=== PATIENT | female | born 1990 | race Caucasian/White ===

== ENCOUNTER 2019-10-10 22:58 | Emergency (ER) | payer SELFPAY ==
[~2019-10-10] VITALS: Ht 175.3 cm; Wt 86.4 kg
[2019-10-10 23:24] LABS: BILIRUBIN,URINE NEGATIVE (NEG); CLARITY,URINE TURBID; COLOR,URINE YELLOW; NITRITE,URINE NEGATIVE (NEG); PH,URINE 8.5 (<5.0-8.0); PROTEIN,URINE NEGATIVE (NEG-TRACE)
[2019-10-10 23:27] LABS: BASO # 0.1 x10^3/uL (0.0-0.2); BASO % 1 % (0-3); EOS # 0.5 x10^3/uL (0.0-0.7); EOS % 5 % (0-3); HEMATOCRIT 38.4 % (36.0-47.0); HEMOGLOBIN 13.2 g/dL (12.0-15.5); LYMPH # 2.5 x10^3/uL (1.0-4.8); LYMPH % 29 % (24-48); MEAN CORPUSCULAR HEMOGLOBIN 32 pg (25-35); MEAN CORPUSCULAR HGB CONC 35 g/dL (31-37); MEAN CORPUSCULAR VOLUME 92 fL (79-100); MONO # 0.8 x10^3/uL (0.0-1.1); MONO % 9 % (0-9); NEUT % 56 % (31-73); PLATELET COUNT 291 x10^3/uL (140-400); RED BLOOD COUNT 4.18 x10^6/uL (3.50-5.40); RED CELL DISTRIBUTION WIDTH 12.3 % (11.5-14.5); WHITE BLOOD COUNT 8.8 x10^3/uL (4.0-11.0)
[2019-10-10 23:29] LABS: AMPHETAMINE/METHAMPHETAMINE NEG (NEG); BARBITURATES NEG (NEG); BENZODIAZEPINES NEG (NEG); CANNABINOIDS NEG (NEG); COCAINE NEG (NEG); METHADONE NEG (NEG); OPIATES NEG (NEG); PHENCYCLIDINE NEG (NEG)
[2019-10-10] MEDS ORDERED: IV NORMAL SALINE 1000ML BAG 1,000 ML IV ONE (23:30)
[2019-10-10] MEDS ORDERED: ONDANSETRON PF 4 MG/2 ML VIAL. IVP ONE (23:30)
[2019-10-10] MEDS ORDERED: FAMOTIDINE 20 MG/2 ML VIAL IVP ONE (23:30)
[2019-10-10] MEDS ORDERED: DICYCLOMINE HCL 10 MG CAPSULE PO ONE (23:30)
[2019-10-10 23:32] LABS: SQUAMOUS EPITHELIAL CELL,UR MOD /LPF
[2019-10-10 23:33] LABS: AMORPHOUS SEDIMENT,UR PRESENT /HPF; BACTERIA,URINE FEW /HPF (0-FEW); RBC,URINE 0 /HPF (0-2); WBC,URINE 0 /HPF (0-4)
[2019-10-10 23:35] LABS: CALCIUM 9.2 mg/dL (8.5-10.1); CREATININE 0.6 mg/dL (0.6-1.0); POTASSIUM 4.2 mmol/L (3.5-5.1)
--- NOTE | 2019-10-10 23:36 | PHYS DOC ---
Past Medical History Past Medical History: Anxiety Adult General Chief Complaint Chief Complaint: ABDOMINAL PAIN HPI HPI Patient is a 29 year old female with a history of anxiety, depression, who presents to the ED today complaining of mild intermittent mid abdominal pain with nausea vomiting, dark stools, and slight diarrhea, symptoms began 1 week ago and has been going on intermittently since then. Patient states she feels constipated though her last stool was today and loose. Denies any fever, or hematemesis Review of Systems Review of Systems Constitutional: Denies fever or chills [] Eyes: Denies change in visual acuity, redness, or eye pain [] HENT: Denies nasal congestion or sore throat [] Respiratory: Denies cough or shortness of breath [] Cardiovascular: No additional information not addressed in HPI [] GI: Reports abdominal pain, nausea vomiting and diarrhea as well as black stools : Denies dysuria or hematuria [] Musculoskeletal: Denies back pain or joint pain [] Integument: Denies rash or skin lesions [] Neurologic: Denies headache, focal weakness or sensory changes [] All other systems were reviewed and found to be within normal limits, except as documented in this note. Current Medications Current Medications Current Medications Medications (Trade) Dose Ordered Sig/Dwayne Start Time Stop Time Status Last Admin Dose Admin Dicyclomine HCl (Bentyl) 20 mg 1X ONCE 10/10/19 23:30 10/10/19 23:31 DC 10/10/19 23:32 20 MG Famotidine (Pepcid Vial) 20 mg 1X ONCE 10/10/19 23:30 10/10/19 23:31 DC 10/10/19 23:32 20 MG Ondansetron HCl (Zofran) 4 mg 1X ONCE 10/10/19 23:30 10/10/19 23:31 DC 10/10/19 23:32 4 MG Sodium Chloride 1,000 ml @ 1,000 mls/hr 1X ONCE 10/10/19 23:30 10/11/19 00:29 10/10/19 23:32 1,000 MLS/HR Allergies Allergies Allergies Coded Allergies Type Severity Reaction Last Updated Verified No Known Drug Allergies 10/10/19 No Physical Exam Physical Exam Constitutional: Well developed, well nourished, no acute distress, non-toxic appearance. [] HENT: Normocephalic, atraumatic, bilateral external ears normal, oropharynx moist, no oral exudates, nose normal. [] Eyes: PERRLA, EOMI, conjunctiva normal, no discharge. [] Neck: Normal range of motion, no tenderness, supple, no stridor. [] Cardiovascular:Heart rate regular rhythm, no murmur [] Lungs & Thorax: Bilateral breath sounds clear to auscultation [] Abdomen: Bowel sounds normal, soft, no tenderness, no masses, no pulsatile masses. [] Skin: Warm, dry, no erythema, no rash. [] Back: No tenderness, no CVA tenderness. [] Extremities: No tenderness, no cyanosis, no clubbing, ROM intact, no edema. [] Neurologic: Alert and oriented X 3, normal motor function, normal sensory function, no focal deficits noted. [] Psychologic: Affect normal, judgement normal, mood normal. [] Current Patient Data Lab Values Laboratory Tests Test 10/10/19 23:05 10/10/19 23:10 10/10/19 23:20 Urine Collection Type Unknown Urine Color Yellow Urine Clarity Turbid Urine pH 8.5 (<5.0-8.0) Urine Specific [place] 1.020 (1.000-1.030) Urine Protein Negative mg/dL (NEG-TRACE) Urine Glucose (UA) Negative mg/dL (NEG) Urine Ketones (Stick) Negative mg/dL (NEG) Urine Blood Negative (NEG) Urine Nitrite Negative (NEG) Urine Bilirubin Negative (NEG) Urine Urobilinogen Dipstick 1.0 mg/dL (0.2 mg/dL) Urine Leukocyte Esterase Negative (NEG) Urine RBC 0 /HPF (0-2) Urine WBC 0 /HPF (0-4) Urine Squamous Epithelial Cells Mod /LPF Urine Amorphous Sediment Present /HPF Urine Bacteria Few /HPF (0-FEW) Urine Mucus Slight /LPF Urine Opiates Screen Neg (NEG) Urine Methadone Screen Neg (NEG) Urine Barbiturates Neg (NEG) Urine Phencyclidine Screen Neg (NEG) Urine Amphetamine/Methamphetamine Neg (NEG) Urine Benzodiazepines Screen Neg (NEG) Urine Cocaine Screen Neg (NEG) Urine Cannabinoids Screen Neg (NEG) Urine Ethyl Alcohol Pos (NEG) POC Urine HCG, Qualitative Hcg negative (Negative) White Blood Count 8.8 x10^3/uL (4.0-11.0) Red Blood Count 4.18 x10^6/uL (3.50-5.40) Hemoglobin 13.2 g/dL (12.0-15.5) Hematocrit 38.4 % (36.0-47.0) Mean Corpuscular Volume 92 fL (79-100) Mean Corpuscular Hemoglobin 32 pg (25-35) Mean Corpuscular Hemoglobin Concent 35 g/dL (31-37) Red Cell Distribution Width 12.3 % (11.5-14.5) Platelet Count 291 x10^3/uL (140-400) Neutrophils (%) (Auto) 56 % (31-73) Lymphocytes (%) (Auto) 29 % (24-48) Monocytes (%) (Auto) 9 % (0-9) Eosinophils (%) (Auto) 5 % (0-3) H Basophils (%) (Auto) 1 % (0-3) Neutrophils # (Auto) 5.0 x10^3/uL (1.8-7.7) Lymphocytes # (Auto) 2.5 x10^3/uL (1.0-4.8) Monocytes # (Auto) 0.8 x10^3/uL (0.0-1.1) Eosinophils # (Auto) 0.5 x10^3/uL (0.0-0.7) Basophils # (Auto) 0.1 x10^3/uL (0.0-0.2) Sodium Level 142 mmol/L (136-145) Potassium Level 4.2 mmol/L (3.5-5.1) Chloride Level 107 mmol/L (98-107) Carbon Dioxide Level 26 mmol/L (21-32) Anion Gap 9 (6-14) Blood Urea Nitrogen 6 mg/dL (7-20) L Creatinine 0.6 mg/dL (0.6-1.0) Estimated GFR (Cockcroft-Gault) 119.0 BUN/Creatinine Ratio 10 (6-20) Glucose Level 108 mg/dL (70-99) H Calcium Level 9.2 mg/dL (8.5-10.1) Total Bilirubin 0.2 mg/dL (0.2-1.0) Aspartate Amino Transferase (AST) 13 U/L (15-37) L Alanine Aminotransferase (ALT) 19 U/L (14-59) Alkaline Phosphatase 117 U/L (46-116) H Total Protein 7.0 g/dL (6.4-8.2) Albumin 3.6 g/dL (3.4-5.0) Albumin/Globulin Ratio 1.1 (1.0-1.7) Lipase 108 U/L (73-393) Ethyl Alcohol Level 11 mg/dL (0-10) H Laboratory Tests 10/10/19 23:20 Laboratory Tests 10/10/19 23:20 EKG EKG [] Radiology/Procedures Radiology/Procedures []PROCEDURE: ABDOMEN SUPINE & UPRIGHT Two-view abdomen dated 10/10/2019. No comparison available. Clinical data indication: Constipation. FINDINGS: Flat and upright views the abdomen show nondilated gas-filled loops of bowel throughout. No abnormal calcification. There is small to moderate amount stool within the colon. No air-fluid level or pneumoperitoneum on the upright view. IMPRESSION: Nonobstructive bowel gas pattern. Electronically signed by: Sonu Arana MD (10/10/2019 11:42 PM) [id number] DICTATED and SIGNED BY: SONU ARANA MD DATE: 10/10/19 2342 Course & Med Decision Making Course & Med Decision Making Pertinent Labs and Imaging studies reviewed. (See chart for details) This is a 29-year-old female patient presenting to the ED today with multiple complaints including abdominal pain, nausea, vomiting, slight diarrhea, constipation. The symptoms intermittently for week. CBC with a normal WBC, normal hemoglobin and hematocrit. Urine analysis negative for infection. UDS positive for alcohol. Alcohol level 11, lipase is normal, CMP with no acute findings. Abdominal x-ray noted for constipation. Discharged with mag citrate. MiraLAX also recommended. Discussed management of constipation including diet exercise and increasing fluid intake. Follow-up with PCP in 1 to 2 weeks. Dragon Disclaimer Dragon Disclaimer This electronic medical record was generated, in whole or in part, using a voice recognition dictation system. Departure Departure Impression: Primary Impression: Constipation Additional Impression: ETOHism Disposition: 01 HOME, SELF-CARE Condition: STABLE Referrals: CAIT WALTERS MD Follow-up with your doctor in 1 to 2 weeks Patient Instructions: Constipation, Adult Additional Instructions: You were evaluated in the emergency room, your x-ray was noted for constipation. Please increase your dietary fiber intake, increase your water intake, try to exercise. Take magnesium citrate anytime you are constipated. Also consider taking MiraLAX every day which will help reduce/prevent episodes of constipation. Follow-up with your primary care doctor in 1 week Scripts Ondansetron (ONDANSETRON ODT) 4 Mg Tab.rapdis 1 TAB PO PRN Q6-8HRS, #16 TAB Prov: JERALD BURNETT APRN 10/10/19 Polyethylene Glycol 3350 (MIRALAX) 17 Gm Powd.pack 1 PACKET PO DAILY for constipation for 2 Days, #2 PACKET 0 Refills dissolve in water Prov: JERALD BURNETT APRN 10/10/19 Magnesium Citrate (MAGNESIUM CITRATE) 296 Ml Solution 296 ML PO ONCE, #296 ML Prov: JERALD BURNETT APRN 10/10/19 Problem Qualifiers Primary Impression: Constipation Constipation type: unspecified constipation type Qualified Codes: K59.00 - Constipation, unspecified JERALD BURNETT APRN Oct 10, 2019 23:36
[2019-10-10 23:41] LABS: ALBUMIN 3.6 g/dL (3.4-5.0); ALBUMIN/GLOBULIN RATIO 1.1 (1.0-1.7); TOTAL BILIRUBIN 0.2 mg/dL (0.2-1.0)
--- NOTE | 2019-10-10 23:45 | RAD ---
Two-view abdomen dated 10/10/2019. No comparison available. Clinical data indication: Constipation. FINDINGS: Flat and upright views the abdomen show nondilated gas-filled loops of bowel throughout. No abnormal calcification. There is small to moderate amount stool within the colon. No air-fluid level or pneumoperitoneum on the upright view. IMPRESSION: Nonobstructive bowel gas pattern. Electronically signed by: Sonu Arana MD (10/10/2019 11:42 PM) [id number]
[2019-10-10] MEDS ORDERED: ONDA4TAB12 PO (23:52)
[2019-10-10] MEDS ORDERED: POLY17PO29 PO (23:52)
[2019-10-10] MEDS ORDERED: MAGN296S68 PO (23:52)
[2019-10-10 23:57] VITALS: BP 124/61
== END 2019-10-10 23:57 | disposition home or self-care (01) ==
LOC: ER 22:58
DX: K59.00 Constipation, unspecified (principal); R11.2 Nausea with vomiting, unspecified; R19.7 Diarrhea, unspecified; R10.30 Lower abdominal pain, unspecified; F10.10 Alcohol abuse, uncomplicated; F41.9 Anxiety disorder, unspecified
CPT/HCPCS: 36415; 74021; 80053; 80307; 81001; 81025; 83690; 85025; 96374; 96375; 99284; G0480; J2405; J3490; J7030